=== PATIENT | female | born 1990 | race African-American/Black ===

== ENCOUNTER 2016-07-11 07:52 | Emergency (ER) | payer SELFPAY ==
[~2016-07-11] VITALS: Ht 162.6 cm; Wt 90.7 kg
[~2016-07-11 07:52] MED LIST: OXYC-323 PO
[2016-07-11 08:15] VITALS: BP 139/69
--- NOTE | 2016-07-11 10:03 | RAD ---
Obstetrical ultrasound, 07/11/2016: History: Early , prior ectopic Transabdominal and transvaginal scans were obtained. The uterus measures 8 x 4.5 x 5.5 cm. There is thickening of the central uterine echo complex which measures 2.2 cm in AP dimension. There is a tiny 2-3 mm cystic structure within the echogenic central uterine echo complex which may represent a tiny gestational sac, however, that cannot be stated with certainty. No pole is visible within this tiny fluid collection. The uterus is otherwise unremarkable. The ovaries are of normal size. No adnexal mass is seen. A small amount of free fluid is present in the pelvis. IMPRESSION: 1. Possible tiny early intrauterine gestational sac as described above. Correlation with hCG titers and sonographic follow-up is suggested to confirm that this is a gestational sac rather than a pseudogestational sac related to an occult ectopic . 2. Small amount of free fluid in the pelvis.
[2016-07-11] MEDS ORDERED: PNV1TABL25 PO (10:18)
--- NOTE | 2016-07-11 10:18 | PHYS DOC ---
Past Medical History Past Medical History: Other Additional Past Medical Histor: ECTOPIC Past Surgical History: Other Additional Past Surgical Histo: L salpingectopy s/p ectopic Alcohol Use: None Drug Use: Marijuana Adult General Chief Complaint Chief Complaint: OTHER COMPLAINTS HPI HPI Patient is a 26 year old female who presents with positive test. Patient reports she had positive test this morning. This makes her , with prior ruptured ectopic . Patient reports LMP 06/11. She denies any abdominal pain or vaginal bleeding. She presents today because Dr. Toney told her with her history she needed to come to the emergency department for evaluation as soon as she finds out she is . Review of Systems Review of Systems Constitutional: Denies fever or chills Eyes: Denies change in visual acuity or eye pain HENT: Denies nasal congestion or sore throat Respiratory: Denies cough or shortness of breath Cardiovascular: Denies chest pain GI: Denies abdominal pain, nausea, vomiting, bloody stools or diarrhea : Denies dysuria or hematuria Musculoskeletal: Denies back pain or joint pain Integument: Denies rash or skin lesions Neurologic: Denies headache, focal weakness or sensory changes Allergies Allergies Allergies Coded Allergies Type Severity Reaction Last Updated Verified No Known Drug Allergies 07/11/16 No Physical Exam Physical Exam Constitutional: Well developed, well nourished, no acute distress, non-toxic appearance HENT: Normocephalic, atraumatic, bilateral external ears normal Eyes: EOMI, conjunctiva normal, no discharge Neck: Normal range of motion, no stridor Cardiovascular: Heart rate normal, regular rhythm, no murmur Lungs & Thorax: Bilateral breath sounds clear to auscultation Abdomen: Bowel sounds normal, soft, non-distended, no TTP Skin: Warm, dry, no erythema, no rash Extremities: No obvious deformity, no edema Neurologic: Alert and oriented X 3, no gross deficits noted Psychologic: Affect normal, judgement normal, mood normal Current Patient Data Vital Signs Vital Signs Date Time Temp Pulse Resp B/P Pulse Ox O2 Delivery O2 Flow Rate FiO2 07/11/16 08:15 98.9 78 20 98 Room Air 98.9 Lab Values Laboratory Tests Test 07/11/16 07:28 07/11/16 09:20 POC Urine HCG, Qualitative Hcg positive (Negative) Maternal Serum HCG Beta Subunit 1307mIU/mL (0-6) H EKG EKG [] Radiology/Procedures Radiology/Procedures Pelvic US: IMPRESSION: 1. Possible tiny early intrauterine gestational sac as described above. Correlation with hCG titers and sonographic follow-up is suggested to confirm that this is a gestational sac rather than a pseudogestational sac related to an occult ectopic . 2. Small amount of free fluid in the pelvis. Course & Med Decision Making Course & Med Decision Making Pertinent Labs and Imaging studies reviewed. (See chart for details) Patient is 26-year-old female with history of ectopic who presents with positive test. Based on LMP, patient very early . Will obtain serum beta hCG as well as pelvic ultrasound, however I do not expect to see much on this ultrasound given how early the is. No other workup indicated given lack of symptoms. Review of prior records shows patient is B+ blood type. Serum hCG 1307, imaging results as above. Patient discharged home with prescription for vitamins, instructions for follow-up with [facility] , strict return precautions. Dragon Disclaimer Dragon Disclaimer This electronic medical record was generated, in whole or in part, using a voice recognition dictation system. Departure Departure Impression: Primary Impression: at early stage Disposition: 01 HOME, SELF-CARE Condition: STABLE Referrals: NO PCP (PCP) LUCIA TONEY Jr, MD Patient Instructions: - First Trimester Additional Instructions: Thank you for allowing us to provide care today in the Emergency Department. Take the provided medication as directed. Schedule a follow up appointment with your ObGyn. Return promptly to the Emergency Department if you develop any new or concerning symptoms. Scripts Pnv Cmb#95/Ferrous Fumarate/Fa ( Tablet)1 Each Tablet1 Tab PO DAILY #30 TAB Ref 0 Prov:SPENCER REYES MD 07/11/16 SPENCER REYES MD Jul 11, 2016 10:18
== END 2016-07-11 10:41 | disposition home or self-care (01) ==
LOC: ER 07:52
DX: Z33.1 Pregnant state, incidental (principal); F12.10 Cannabis abuse, uncomplicated
CPT/HCPCS: 36415; 76801; 81025; 84702; 99284-25; 99285-25